=== PATIENT | female | born 1965 | race Caucasian/White ===

== ENCOUNTER 2017-03-03 09:59 | Emergency (ER) | payer OTHER ==
[~2017-03-03] VITALS: Ht 160 cm; Wt 119.7 kg
[~2017-03-03 09:59] MED LIST: ALBU17I INH; ASPI81TA82 PO; AZAT50 PO; BACL10TA PO; BRIM1GEL TOPICAL; CYMB60CA PO; FIORINAL2 PO; GABA400C5 PO; HYDR10SO PO; HYDR2TAB PO; LIPI40TA PO; LOSA50TA PO; MONT10TA2 PO; ONDA8 PO; OXCA300S6 PO; PROV100T3 PO; dulara INH; veramyst
[2017-03-03 10:06] VITALS: BP 174/79; PULSE 82; RESP 20; TEMP 98; O2SAT 95
--- NOTE | 2017-03-03 10:20 | PD ---
HPI Chief Complaint: Respiratory Symptoms Time Seen by Provider: 10:10 Travel History International Travel<30 days: No Contact w/Intl Traveler<30days: No Traveled to known affect area: No History of Present Illness HPI 51-year-old female presents with persistent wheezing despite treatment in urgent care yesterday. She states she was given a steroid shot and a breathing treatment. She states she is not taken the breathing treatments in chest or today. She states she only has albuterol at home and did not think it would help her. She denies any other concurrent complaints. She states her asthma has been under really good control and she has not been in the hospital for a couple decades. He states she's never been intubated for her asthma. 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 Varner. She feels worse when she moves around. She denies other modifying factors. PFSH Past Medical History Anemia: Yes Arthritis: Yes Asthma: Yes Autoimmune Disease: Yes (LUPUS) Blood Disorders: Yes (ANEMIA) Anxiety: No Depression: Yes Heart Rhythm Problems: No Cancer: No Cardiovascular Problems: Yes High Cholesterol: Yes Chest Pain: No Congestive Heart Failure: No Diabetes: No Diminished Hearing: No Endocrine: No Gastrointestinal Disorders: Yes GERD: Yes Genitourinary: Yes (FREQUENT BLADDER INFECTIONS) Headaches: Yes Hepatitis: No Hiatal Hernia: No Immune Disorder: No Musculoskeletal: Yes Neurologic: Yes (trigeminal neuralgia) Psychiatric: Yes Reproductive: Yes (ADENOMYOSIS) Respiratory: Yes (ATHMA) Migraines: Yes Sleep Apnea: Yes Thyroid Disease: No ?: Not Past Surgical History Abdominal Surgery: No AICD: No Arteriovenous Shunt: No Cardiac Surgery: No Section: Yes (X 2) Ear Surgery: No Endocrine Surgery: No Eye Surgery: No Gynecologic Surgery: Yes (ENDOMETRIAL ABLATION/ HYSTERCTOMY) Hysterectomy: Yes Insulin Pump: No Joint Replacement: No Oral Surgery: Yes (TONSILECTOMY) Pacemaker: No Thoracic Surgery: No Tonsillectomy: Yes Other Surgery: Yes (RASIATION TO FACE FOR TRIGEMINAL NEURALGIA) Social History Alcohol Use: No Tobacco Use: No Substance Use: No Allergies-Medications (Allergen,Severity, Reaction): Coded Allergies: hydromorphone (Unverified Allergy, Severe, PT TAKES, 03/03/17) morphine (Unverified Allergy, Severe, N/V, 03/03/17) Reported Meds & Prescriptions Reported Meds & Active Scripts Active Duoneb (Ipratropium-Albuterol Neb) 0.5-2.5 Mg/3 Ml Neb 1 Nebule INH Q4HR NEB PRN Prednisone 50 Mg Tab 50 Mg PO DAILY 5 Days Reported Modafinil 200 Mg Tab 100 Mg PO DAILY Temazepam 15 Mg Cap 15 Mg PO HS PRN Ros[place] Topical 0.75% (Metronidazole Topical 0.75%) 0.75% Gel 1 Applic TOPICAL DIRECTED Flexeril (Cyclobenzaprine HCl) 10 Mg Tab 10 Mg PO HS PRN Levothyroxine (Levothyroxine Sodium) 50 Mcg Tab 50 Mcg PO DAILY Mobic (Meloxicam) 15 Mg Tab 15 Mg PO DAILY Baclofen 10 Mg Tab 10 Mg PO TID PRN Louise (Hydrocodone-Acetaminophen) 10-325 Mg Tab 1 Tab PO BID PRN Zofran (Ondansetron HCl) 8 Mg Tab 8 Mg PO TID PRN Cymbalta DR (Duloxetine HCl) 60 Mg Capdr 60 Mg PO DAILY Prednisone 1 Mg Tab Unknown Dose PO DAILY PRN Ventolin Hfa 18 GM Inh (Albuterol Sulfate) 90 Mcg/Act Aer 2 Puff INH Q4H PRN Singulair (Montelukast Sodium) 10 Mg Tab 10 Mg PO DAILY Losartan (Losartan Potassium) 100 Mg Tab 100 Mg PO DAILY Amlodipine (Amlodipine Besylate) 10 Mg Tab 10 Mg PO DAILY Fiorinal-Codeine #3 (Odiornmiex-Qkkwycp-Oyzsdrds-Codeine) [id number] Mg Cap 1- 2 Cap PO Q4H PRN Do not exceed 6 capsules/day. Dilaudid (Hydromorphone HCl) 2 Mg Tab 2 Mg PO Q6H PRN Rebif Inj (Interferon Beta 1a) 22 Mcg/0.5 Ml Syr Unknown Dose SQ MOWEFR Protonix (Pantoprazole Sodium) 40 Mg Tab 40 Mg PO DAILY Metoprolol Succinate ER 24 HR (Metoprolol Succinate) 50 Mg Tab 50 Mg PO DAILY Zetia (Ezetimibe) 10 Mg Tab 10 Mg PO DAILY Gabapentin 400 Mg Cap 400 Cap PO BID Trileptal (Oxcarbazepine) 300 Mg Tab 600 Mg PO TID Imuran (Azathioprine) 50 Mg Tab 50 Mg PO DAILY Hazardous agent: use appropriate precautions for handling and disposal. Review of Systems Except as stated in HPI: all other systems reviewed are Neg Physical Exam Narrative GENERAL: Well-nourished, well-developed patient. Well-appearing SKIN: Warm and dry. HEAD: Normocephalic and atraumatic. EYES: No injection or drainage. ENT: No nasal drainage noted. NECK: Supple, trachea midline. CARDIOVASCULAR: Regular rate and rhythm RESPIRATORY: Expiratory wheezing bilaterally. No accessory muscle use. No tachypnea noted GASTROINTESTINAL: Abdomen soft, non-tender, nondistended. EXTREMITIES: No edema. NEUROLOGICAL: Awake and alert. Motor and sensory grossly within normal limits. Normal speech Data Data Last Documented VS Vital Signs Date Time Temp Pulse Resp B/P (MAP) Pulse Ox O2 Delivery O2 Flow Rate FiO2 03/03/17 10:30 20 98 Room Air 03/03/17 10:06 98.0 82 174/79 (110) Orders Orders Complete Blood Count With Diff (03/03/17 10:16) Basic Metabolic Panel (Bmp) (03/03/17 10:16) Influenzae A/B Antigen (03/03/17 10:16) Iv Access Insert/Monitor (03/03/17 10:16) Ecg Monitoring (03/03/17 10:16) Oximetry (03/03/17 10:16) Chest, Pa & Lat (03/03/17 10:16) Sodium Chloride 0.9% Flush (Ns Flush) (03/03/17 10:30) Methylprednisolone So Succ Inj (Solumedr (03/03/17 10:30) Albuterol-Ipratropium Neb (Duoneb Neb) (03/03/17 10:30) Ed Discharge Order (03/03/17 12:21) Labs Laboratory Tests Test 03/03/17 11:15 White Blood Count 7.7 TH/MM3 Red Blood Count 4.81 MIL/MM3 Hemoglobin 14.4 GM/DL Hematocrit 43.6 % Mean Corpuscular Volume 90.7 FL Mean Corpuscular Hemoglobin 29.9 PG Mean Corpuscular Hemoglobin Concent 32.9 % Red Cell Distribution Width 12.4 % Platelet Count 207 TH/MM3 Mean Platelet Volume 8.9 FL Neutrophils (%) (Auto) 77.8 % Lymphocytes (%) (Auto) 18.0 % Monocytes (%) (Auto) 4.0 % Eosinophils (%) (Auto) 0.1 % Basophils (%) (Auto) 0.1 % Neutrophils # (Auto) 6.0 TH/MM3 Lymphocytes # (Auto) 1.4 TH/MM3 Monocytes # (Auto) 0.3 TH/MM3 Eosinophils # (Auto) 0.0 TH/MM3 Basophils # (Auto) 0.0 TH/MM3 CBC Comment DIFF FINAL Differential Comment Blood Urea Nitrogen 21 MG/DL Creatinine 0.85 MG/DL Random Glucose 155 MG/DL Calcium Level 9.5 MG/DL Sodium Level 138 MEQ/L Potassium Level 3.9 MEQ/L Chloride Level 102 MEQ/L Carbon Dioxide Level 24.7 MEQ/L Anion Gap 11 MEQ/L Estimat Glomerular Filtration Rate 71 ML/MIN MDM Medical Decision Making Medical Screen Exam Complete: Yes Emergency Medical Condition: Yes Medical Record Reviewed: Yes (past history confirmed) Interpretation(s) CBC & BMP Diagram 03/03/17 11:15 Calcium Level 9.5 Last 24 hours Impressions Chest X-Ray 03/03/17 1016 Signed Impressions: Service Date/Time: Friday, March 03, 2017 10:33 - CONCLUSION: Normal examination. Luis Alberto Newell MD Differential Diagnosis Asthma, pneumonia, pneumothorax, COPD Narrative Course Will check lab work, chest x-ray, influenza and dose with Solu-Medrol and DuoNeb 's and reevaluate On recheck vitals stable, patient has only mild wheezing remaining after 3 nebulizer treatments, patient offered observation but wanting to go home. She understands the importance of return instructions, given she has improved and her blood work and x-ray are normal and she agrees to close follow-up and to do her nebulizer treatments at home I think this is appropriate. Diagnosis Primary Impression: Asthma exacerbation Qualified Codes: J45.901 - Unspecified asthma with (acute) exacerbation Patient Instructions: General Instructions Additional Instructions: return as needed, follow with primary tommorrow, use breathing treatment for the next day every 4 hours Med/Other Pt SpecificInfo: Prescription(s) given Scripts Ipratropium-Albuterol Neb (Duoneb) 0.5-2.5 Mg/3 Ml Neb 1 NEBULE INH Q4HR NEB Y for WHEEZING, #100 NEBULE 0 Refills Prov: Chanelle Brown MD 03/03/17 Prednisone (Prednisone) 50 Mg Tab 50 MG PO DAILY for 5 Days, #5 TAB 0 Refills Prov: Chanelle Brown MD 03/03/17 Disposition: 01 DISCHARGE HOME Condition: Stable Chanelle Brown MD Mar 03, 2017 10:20
[2017-03-03] MEDS: RESP: ALBUTEROL 2.5 MG/IPRATROPIUM 0.5 MG NEB (SCH) INH (10:28)
[2017-03-03 10:30] VITALS: RESP 20; O2SAT 98
[2017-03-03] MEDS ORDERED: SODIUM CHLORIDE 0.9% FLUSH 10 ML FLUSH IVF PRN (10:30)
[2017-03-03] MEDS ORDERED: methylPREDNISolone SOD SUCC 125 MG/2 ML VIAL IV PUSH ONE (10:30)
[2017-03-03] MEDS ORDERED: BACL10TA PO (10:44)
[2017-03-03] MEDS ORDERED: CYMB60CA PO (10:44)
[2017-03-03] MEDS ORDERED: HYDR-3366 PO (10:44)
[2017-03-03] MEDS ORDERED: METR0.7533 TOPICAL (10:44)
[2017-03-03] MEDS ORDERED: VENTAER INH (10:44)
[2017-03-03] MEDS ORDERED: LOSA100T PO (10:44)
[2017-03-03] MEDS ORDERED: IMUR50TA5 PO (10:44)
[2017-03-03] MEDS ORDERED: LEVO50TA4 PO (10:44)
[2017-03-03] MEDS ORDERED: GABA400C5 PO (10:44)
[2017-03-03] MEDS ORDERED: PROT40TA PO (10:44)
[2017-03-03] MEDS ORDERED: MONT10TA2 PO (10:44)
[2017-03-03] MEDS ORDERED: PRED1 PO (10:44)
[2017-03-03] MEDS ORDERED: METO1TAB9 PO (10:44)
[2017-03-03] MEDS ORDERED: TEMA15CA PO (10:44)
[2017-03-03] MEDS ORDERED: CYCL10TA PO (10:44)
[2017-03-03] MEDS ORDERED: AMLO10TA2 PO (10:44)
[2017-03-03] MEDS ORDERED: TRIL300T PO (10:44)
[2017-03-03] MEDS ORDERED: FIOR30CA12 PO (10:44)
[2017-03-03] MEDS ORDERED: ZOFR8TAB PO (10:44)
[2017-03-03] MEDS ORDERED: EZET10 PO (10:44)
[2017-03-03] MEDS ORDERED: MODA200T12 PO (10:44)
[2017-03-03] MEDS ORDERED: MOBI15TA PO (10:44)
[2017-03-03] MEDS ORDERED: REBI22IN SQ (10:44)
[2017-03-03] MEDS ORDERED: DILA2TAB4 PO (10:44)
--- NOTE | 2017-03-03 11:47 | RADRPT ---
EXAM DATE/TIME: 03/03/2017 10:33 [facility] COMPARISON: CHEST PA & LAT, November 09, 2014, 14:55. INDICATIONS : Shortness of breath. Cough. Congestion. MEDICAL HISTORY : Asthma SURGICAL HISTORY : None. ENCOUNTER: Initial ACUITY: 1 week PAIN SCORE: 0/10 LOCATION: Bilateral chest FINDINGS: PA and lateral views of the chest demonstrate the lungs to be symmetrically aerated without evidence of mass, infiltrate or effusion. The cardiomediastinal contours are unremarkable. Osseous structure s are intact. CONCLUSION: Normal examination. Luis Alberto Newell MD on March 03, 2017 at 11:44 Board Certified Radiologist. This report was verified electronically.
[2017-03-03 11:51] LABS: BASOPHIL % 0.1 % (0.0-2.0); EOSINOPHIL % 0.1 % (0.0-4.0); HEMATOCRIT 43.6 % (35.0-46.0); HEMOGLOBIN 14.4 GM/DL (11.6-15.3); LYMPHOCYTE # 1.4 TH/MM3 (1.0-4.8); MEAN CELL VOLUME 90.7 FL (80.0-100.0); MEAN CORPUSCULAR HEMOGLOBIN 29.9 PG (27.0-34.0); MEAN CORPUSCULAR HGB CONC 32.9 % (32.0-36.0); MEAN PLATELET VOLUME 8.9 FL (7.0-11.0); MONOCYTE # 0.3 TH/MM3 (0-0.9); NEUT % 77.8 % (16.0-70.0); PLATELET COUNT 207 TH/MM3 (150-450); RED BLOOD COUNT 4.81 MIL/MM3 (4.00-5.30); RED CELL DISTRIBUTION WIDTH 12.4 % (11.6-17.2); WHITE BLOOD COUNT 7.7 TH/MM3 (4.0-11.0)
[2017-03-03 11:57] LABS: BICARBONATE 24.7 MEQ/L (21.0-32.0); CALCIUM 9.5 MG/DL (8.5-10.1)
[2017-03-03 12:01] LABS: CREATININE 0.85 MG/DL (0.50-1.00)
[2017-03-03] MEDS ORDERED: IPRASOL INH (12:23)
[2017-03-03] MEDS ORDERED: PRED50 PO (12:23)
== END 2017-03-03 13:01 | disposition home or self-care (01) ==
LOC: PHED 09:59
DX: J45.901 Unspecified asthma with (acute) exacerbation (principal); D64.9 Anemia, unspecified; M32.9 Systemic lupus erythematosus, unspecified; F32.9 Major depressive disorder, single episode, unspecified; E78.00 Pure hypercholesterolemia, unspecified; K21.9 Gastro-esophageal reflux disease without esophagitis
CPT/HCPCS: 71020; 80048; 85025; 87804; 94640; 94664; 96374; 99284; J2930